=== PATIENT | female | born 1990 | race Caucasian/White ===

== ENCOUNTER 2017-03-14 18:18 | Emergency (ER) | payer SELFPAY ==
[~2017-03-14] VITALS: Ht 149.9 cm; Wt 100.0 kg
[~2017-03-14 18:18] MED LIST: CIPR-278 PO; PHEN-933 PO
[2017-03-14] MEDS ORDERED: HYDROCODONE/ACETAMINOPHEN 5-325 MG TABLET PO ONE (19:30)
[2017-03-14] MEDS ORDERED: CLINDAMYCIN HCL 150 MG CAPSULE PO ONE (19:30)
[2017-03-14] MEDS ORDERED: PENICILLIN V POTASSIUM 500 MG TABLET PO ONE (19:30)
[2017-03-14 20:05] VITALS: BP 139/85
== END 2017-03-14 20:08 | disposition home or self-care (01) ==
LOC: EMS 18:19
DX: K02.9 Dental caries, unspecified (principal); Z88.0 Allergy status to penicillin
CPT/HCPCS: 99283

== ENCOUNTER 2017-08-22 12:41 | Emergency (ER) | payer OTHER ==
[~2017-08-22] VITALS: Ht 152.4 cm; Wt 84.1 kg
[2017-08-22] MEDS ORDERED: ONDANSETRON HCL 4 MG/2 ML VIAL IVP ONE (14:45)
[2017-08-22] MEDS ORDERED: SODIUM CHLORIDE 0.9% 1,000 ML IV ONE ×2 (14:45→16:45)
[2017-08-22 15:54] LABS: BASOPHILS % (AUTO) 0.5 % (0.0-2.0); EOSINOPHILS % (AUTO) 0.5 % (1.0-6.0); HEMATOCRIT 42.2 % (36-46); HEMOGLOBIN 14.5 g/dL (12.0-16.0); LYMPHOCYTES # (AUTO) 2.5 K/uL (1.0-4.8); LYMPHOCYTES % (AUTO) 26.2 % (22.0-44.0); MEAN CORPUSCULAR HEMOGLOBIN 29.3 pg (26.0-34.0); MEAN CORPUSCULAR HGB CONC 34.5 G/dL (31.0-37.0); MEAN CORPUSCULAR VOLUME 85 fL (80-100); MONOCYTES # (AUTO) 0.5 K/uL (0.1-1.0); MONOCYTES % (AUTO) 5.3 % (2.0-9.0); NEUTROPHILS # (AUTO) 6.5 K/uL (1.8-7.7); NEUTROPHILS % (AUTO) 67.5 % (40.0-70.0); PLATELET COUNT (AUTO) 254 K/uL (150-450); RED BLOOD CELL COUNT(AUTO) 4.97 MIL/uL (4.00-5.20)
[2017-08-22 16:02] LABS: ANION GAP 7 mmol/L (8-16); CARBON DIOXIDE 26 mmol/L (22-29); CHLORIDE 102 mmol/L (98-107); CREATININE 0.77 mg/dL (0.60-1.30); GLOMERULAR FILTR. RATE CALC > 60 mL/min (>60); GLUCOSE,RANDOM 75 mg/dL (70-110); POTASSIUM 3.5 mmol/L (3.5-5.1); SODIUM SERUM 135 mmol/L (136-145); UREA NITROGEN, BLOOD 8 mg/dL (7-18)
[2017-08-22 16:06] VITALS: BP 110/67
[2017-08-22 16:33] LABS: ALANINE AMINOTRANSFERASE 28 U/L (12-78); ALBUMIN 3.4 g/dL (3.4-5.0); ALKALINE PHOSPHATASE 76 U/L (46-116); ASPARTATE AMINOTRANSFERASE 16 U/L (15-37); BILIRUBIN,TOTAL 0.5 mg/dL (0.1-1.0); HCG,QUANTITATIVE 39439 mIU/mL (0-6); LIPASE 102 U/L (73-393); TOTAL PROTEIN, SERUM 7.6 g/dL (6.4-8.2)
== END 2017-08-22 18:51 | disposition home or self-care (01) ==
LOC: EMS 12:47
DX: O21.0 Mild hyperemesis gravidarum (principal); O26.891 Other specified pregnancy related conditions, first trimester; R10.12 Left upper quadrant pain; Z3A.01 Less than 8 weeks gestation of pregnancy; Z88.0 Allergy status to penicillin
CPT/HCPCS: 36415; 76801; 76817; 80053; 83690; 84702; 85025; 96374; 99285; J2405; J7030

== ENCOUNTER 2017-12-04 10:15 | Observation (INO) | payer OTHER ==
[~2017-12-04] VITALS: Ht 149.9 cm; Wt 88.9 kg
[2017-12-04 11:35] VITALS: BP 113/65
== END 2017-12-04 12:00 | disposition home or self-care (01) ==
LOC: 4S 10:15
PROVIDERS: ADMIT Obstetrics & Gynecology; ATTEND Obstetrics & Gynecology
DX: O26.892 Other specified pregnancy related conditions, second trimester (principal); R10.31 Right lower quadrant pain; Z3A.21 21 weeks gestation of pregnancy
CPT/HCPCS: 59025; 76815; G0378

== ENCOUNTER 2017-12-08 16:00 | Observation (INO) | payer OTHER, MEDICAID ==
[~2017-12-08] VITALS: Ht 149.9 cm; Wt 89.5 kg
[2017-12-08] MEDS ORDERED: PREN-196 PO (16:09)
[2017-12-08 16:16] VITALS: BP 112/83
== END 2017-12-08 17:37 | disposition home or self-care (01) ==
LOC: 4S 16:00
PROVIDERS: ADMIT Obstetrics & Gynecology; ATTEND Obstetrics & Gynecology
DX: O36.8120 Decreased fetal movements, second trimester, not applicable or unspecified (principal); Z3A.22 22 weeks gestation of pregnancy
CPT/HCPCS: 59025; G0378

== ENCOUNTER 2018-01-09 02:08 | Emergency (ER) | payer MEDICAID, OTHER ==
[~2018-01-09] VITALS: Ht 149.9 cm; Wt 89.1 kg
[~2018-01-09 02:08] MED LIST changes: -CIPR-278 PO; -PHEN-933 PO; +PREN-196 PO
[2018-01-09] MEDS ORDERED: DiphenhydrAMINE HCL 25 MG CAPSULE PO ONE (02:15)
[2018-01-09] MEDS ORDERED: DiphenhydrAMINE HCL 25 MG/10 ML ELIXIR UDCUP PO ONE (02:30)
[2018-01-09 03:35] VITALS: BP 135/80
== END 2018-01-09 03:37 | disposition home or self-care (01) ==
LOC: EMS 02:09
DX: O26.893 Other specified pregnancy related conditions, third trimester (principal); T78.40XA Allergy, unspecified, initial encounter; Z3A.28 28 weeks gestation of pregnancy; X58.XXXA Exposure to other specified factors, initial encounter
CPT/HCPCS: 59025; 99283